=== PATIENT | female | born 1990 | race Caucasian/White ===

== ENCOUNTER 2019-07-31 04:22 | Emergency (ER) | payer SELFPAY ==
[~2019-07-31] VITALS: Ht 157.5 cm; Wt 54.4 kg
[2019-07-31 04:25] VITALS: BP 154/99
[2019-07-31 04:45] VITALS: BP 154/99
== END 2019-07-31 04:45 | disposition home or self-care (01) ==
LOC: MED 04:22
DX: Z04.1 Encounter for examination and observation following transport accident (principal); Z00.00 Encounter for general adult medical examination without abnormal findings
CPT/HCPCS: 99283